=== PATIENT | male | born 2000 | race Caucasian/White ===

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

== ENCOUNTER 2022-10-03 15:05 | Emergency (ER) | payer MEDICAID ==
[~2022-10-03] VITALS: Ht 193 cm; Wt 125.0 kg
[2022-10-03 15:09] VITALS: TEMP 98.5
[2022-10-03 16:31] VITALS: BP 127/86; PULSE 88
== END 2022-10-03 16:32 | disposition home or self-care (01) ==
LOC: COL.ER 15:05
DX: S60.221A Contusion of right hand, initial encounter (principal); F43.10 Post-traumatic stress disorder, unspecified; Z28.310 Unvaccinated for COVID-19; W22.09XA Striking against other stationary object, initial encounter

== ENCOUNTER 2023-09-30 23:24 | Emergency (ER) | payer MEDICAID ==
[~2023-09-30] VITALS: Ht 185.4 cm; Wt 125.0 kg
[2023-09-30] MEDS ORDERED: Ibuprofen 400 MG TAB PO ONE (23:45)
[2023-09-30] MEDS ORDERED: Acetaminophen 500 MG TAB PO ONE (23:45)
[2023-10-01 00:27] VITALS: BP 142/82; PULSE 88; TEMP 98.5
== END 2023-10-01 00:27 | disposition home or self-care (01) ==
LOC: COL.ER 23:24
DX: S93.401A Sprain of unspecified ligament of right ankle, initial encounter (principal); X50.1XXA Overexertion from prolonged static or awkward postures, initial encounter; Y93.67 Activity, basketball; Y92.310 Basketball court as the place of occurrence of the external cause

== ENCOUNTER 2023-11-22 10:44 | Emergency (ER) | payer MEDICAID ==
[~2023-11-22] VITALS: Ht 185.4 cm; Wt 122.7 kg
[2023-11-22 10:49] VITALS: TEMP 98.1
[2023-11-22] MEDS ORDERED: Ketorolac 30 MG/ML VIAL IM ONE (11:15)
[2023-11-22 12:39] VITALS: BP 117/85; PULSE 76
== END 2023-11-22 12:40 | disposition home or self-care (01) ==
LOC: COL.ER 10:44
DX: R51.9 Headache, unspecified (principal)
CPT/HCPCS: J0780; J1885